=== PATIENT | female | born 1940 | race African-American/Black ===

== ENCOUNTER 2021-10-22 12:42 | Emergency (ER) | payer OTHER ==
[~2021-10-22] VITALS: Ht 165.1 cm; Wt 75.0 kg
[2021-10-22] MEDS ORDERED: SODIUM CHLORIDE 0.9% 1,000 ML IV ONE (13:15)
[2021-10-22 14:06] LABS: BASOPHILS % 0.6 % (0.0-2.0); EOSINOPHILS % 0.6 % (0.0-5.0); HEMATOCRIT. 33.5 % (36.0-48.0); HEMOGLOBIN. 10.8 g/dL (12.0-16.0); LYMPHOCYTES % 33.4 % (20.0-50.0); MEAN CORPUSCULAR HEMOGLOBIN 29.8 pg (28.0-32.0); MEAN CORPUSCULAR VOLUME 92.1 fL (81.0-99.0); MEAN PLATELET VOLUME 9.9 fl (7.4-10.4); MONOCYTES % 13.3 % (2.0-8.0); NEUTROPHILS % 52.1 % (40.0-76.0); PLATELET 165 x1000/uL (130-400); RED BLOOD CELL COUNT 3.63 mill/uL (4.2-5.4); RED CELL DISTRIBUTION WIDTH 13.7 % (11.6-14.6)
[2021-10-22 14:13] LABS: CHLORIDE 103 mEq/L (98-107)
[2021-10-22 15:51] LABS: CLARITY URINE CLEAR (CLEAR); COLOR URINE YELLOW (YELLOW); KETONES URINE NEGATIVE (NEGATIVE); LEUKOCYTE ESTERASE URINE TRACE (NEGATIVE); NITRITE URINE NEGATIVE (NEGATIVE); OCCULT BLOOD URINE NEGATIVE (NEGATIVE); PH URINE 5.5 (4.5-8.0); PROTEIN URINE NEGATIVE (NEGATIVE); SPECIFIC GRAVITY URINE 1.009 (1.005-1.030); UROBILINOGEN URINE 0.2 E.U./dL (0.2-1.0)
[2021-10-22 17:51] VITALS: BP 112/62
== END 2021-10-22 17:51 | disposition home or self-care (01) ==
LOC: ER 12:42 → EDSEX 12:42 → ER 17:51
DX: I95.9 Hypotension, unspecified (principal); E87.1 Hypo-osmolality and hyponatremia; E86.0 Dehydration; E11.65 Type 2 diabetes mellitus with hyperglycemia
CPT/HCPCS: 36415; 71045; 80053; 81003; 84484; 85025; 96360; 96361; 99284; J7030

== ENCOUNTER 2021-12-01 12:53 | Emergency (ER) | payer OTHER ==
[~2021-12-01] VITALS: Ht 160 cm; Wt 70.0 kg
[2021-12-01 14:24] LABS: BASOPHILS % 0.5 % (0.0-2.0); HEMATOCRIT. 35.7 % (36.0-48.0); HEMOGLOBIN. 12.1 g/dL (12.0-16.0); LYMPHOCYTES % 42.6 % (20.0-50.0); MEAN CORPUSCULAR HEMOGLOBIN 30.7 pg (28.0-32.0); MEAN CORPUSCULAR VOLUME 90.8 fL (81.0-99.0); MEAN PLATELET VOLUME 9.1 fl (7.4-10.4); MONOCYTES % 12.9 % (2.0-8.0); PLATELET 217 x1000/uL (130-400); RED BLOOD CELL COUNT 3.93 mill/uL (4.2-5.4); RED CELL DISTRIBUTION WIDTH 13.5 % (11.6-14.6)
[2021-12-01 14:27] LABS: CHLORIDE 108 mEq/L (98-107)
[2021-12-01 14:57] LABS: CLARITY URINE CLEAR (CLEAR); COLOR URINE YELLOW (YELLOW); SPECIFIC GRAVITY URINE 1.008 (1.005-1.030)
[2021-12-01 14:58] LABS: KETONES URINE NEGATIVE (NEGATIVE); OCCULT BLOOD URINE NEGATIVE (NEGATIVE); PROTEIN URINE NEGATIVE (NEGATIVE)
[2021-12-01 14:59] LABS: LEUKOCYTE ESTERASE URINE NEGATIVE (NEGATIVE); NITRITE URINE NEGATIVE (NEGATIVE); UROBILINOGEN URINE 0.2 E.U./dL (0.2-1.0)
[2021-12-01] MEDS ORDERED: IBUPROFEN 400MG TABLET PO ONE (20:45)
[2021-12-01 21:45] VITALS: BP 175/81
== END 2021-12-01 21:45 | disposition home or self-care (01) ==
LOC: ER 12:53
DX: N85.00 Endometrial hyperplasia, unspecified (principal); E11.9 Type 2 diabetes mellitus without complications; I10 Essential (primary) hypertension
CPT/HCPCS: 36415; 76830; 76856; 80053; 81003; 85025; 99284

== ENCOUNTER 2022-05-03 09:29 | Emergency (ER) | payer OTHER ==
[~2022-05-03] VITALS: Ht 165.1 cm; Wt 50.0 kg
[~2022-05-03 09:29] MED LIST: CEPH500C2 PO
[2022-05-03] MEDS ORDERED: zofran (10:02)
[2022-05-03] MEDS ORDERED: SODIUM CHLORIDE 0.9% 1,000 ML IV ONE ×2 (10:45→14:00)
[2022-05-03 11:29] LABS: BASOPHILS % 0.5 % (0.0-2.0); EOSINOPHILS % 0.9 % (0.0-5.0); HEMATOCRIT. 25.9 % (36.0-48.0); HEMOGLOBIN. 8.5 g/dL (12.0-16.0); LYMPHOCYTES % 14.9 % (20.0-50.0); MEAN CORPUSCULAR HEMOGLOBIN 28.2 pg (28.0-32.0); MEAN CORPUSCULAR VOLUME 86.2 fL (81.0-99.0); MEAN PLATELET VOLUME 7.9 fl (7.4-10.4); MONOCYTES % 8.2 % (2.0-8.0); NEUTROPHILS % 75.5 % (40.0-76.0); PLATELET 396 x1000/uL (130-400); RED BLOOD CELL COUNT 3.01 mill/uL (4.2-5.4)
[2022-05-03 11:38] LABS: CHLORIDE 84 mEq/L (98-107)
[2022-05-03 19:00] VITALS: BP 147/75
== END 2022-05-03 20:18 | disposition short-term general hospital (02) ==
LOC: ER 09:41 → CANBEDREQ 22:29
DX: R53.1 Weakness (principal); E86.0 Dehydration; E87.1 Hypo-osmolality and hyponatremia; N19 Unspecified kidney failure; E11.9 Type 2 diabetes mellitus without complications; I10 Essential (primary) hypertension; Z20.822 Contact with and (suspected) exposure to COVID-19
CPT/HCPCS: 36415; 80053; 82962; 85025; 87426; 93005; 96360; 96361; 99284; C9803; J7030; Z7610